=== PATIENT | female | born 1950 | race Caucasian/White ===

== ENCOUNTER 2023-08-21 | Inpatient (IN) | payer OTHER, MEDICAID ==
[~2023-08-21] VITALS: Ht 162.6 cm; Wt 79.3 kg
[2023-08-21] MEDS ORDERED: iohexol 350MG/ML 100ml bottle IV ONE (03:20)
[2023-08-21] MEDS ORDERED: iohexol 350 MG/ML 50ML vial IV ONE (03:39)
[2023-08-21] MEDS ORDERED: magnesium Cl slow-release 64mg tablet PO PRN (04:20)
[2023-08-21] MEDS ORDERED: potassium Cl 40MEQ/1/2NS 520ml 520 ML IV PRN (04:20)
[2023-08-21] MEDS ORDERED: magnesium 4gm in 100ml NS 100 ML IV PRN (04:20)
[2023-08-21] MEDS ORDERED: potassium Cl 20 mEq SR tablet PO PRN (04:20)
[2023-08-21] MEDS ORDERED: magnesium 2GM in 50ml NS 50 ML IV PRN (04:20)
[2023-08-21] MEDS ORDERED: mag hydrox/Alum hydrox/simeth 30ml oral suspension PO PRN (04:20)
[2023-08-21] MEDS ORDERED: acetaminophen 325mg tablet PO PRN (04:20)
[2023-08-21] MEDS: vancomycin/NS 1 GM ADD-VANTAGE 250 ML IV ONE (04:35)
[2023-08-21] MEDS: nicotine 14mg patch - 24hr TD ONE (04:45)
[2023-08-21] MEDS: normal saline 1000ml 1,000 ML IV SCH (05:05)
[2023-08-21] MEDS ORDERED: heparin 10,000 units/1 ML INJ IV SCH (05:20)
[2023-08-21] MEDS: ondansetron/PF 4mg/2ml inj IV PRN (05:44)
[2023-08-21] MEDS: nicotine 21mg patch - 24 hr TD ONE (05:45)
[2023-08-21] MEDS ORDERED: heparin 10,000 units/1 ML INJ IV PRN (06:35)
[2023-08-21] MEDS: morphine 2 MG/ML inj. syringe IV PRN (07:01)
[2023-08-21] MEDS: morphine 2 MG/ML inj. syringe IV ONE (07:35)
[2023-08-21] MEDS: piperacillin/tazo 3.375gm/50ml 50 ML IV SCH (08:00)
[2023-08-21] MEDS: K and/or MAG REPLACEMENT MC SCH (08:00)
[2023-08-21] MEDS ORDERED: enoxaparin 30mg/0.3ml syringe SQ SCH (08:00)
[2023-08-21] MEDS: docusate sod 100mg capsule PO SCH (08:00)
[2023-08-21] MEDS: heparin 10,000 units/1 ML INJ IV SCH (08:07)
[2023-08-21] MEDS: heparin 25,000 UNIT/250ml bag 250 ML IV PRN (08:09)
[2023-08-21 10:48] LABS: BASOPHILS # (AUTO) 0.1 X10'3 (0-0.2); BASOPHILS % (AUTO) 0.8 % (0-1); EOSINOPHILS # (AUTO) 0.2 X10'3 (0-0.9); EOSINOPHILS % (AUTO) 1.6 % (0-6); HEMOGLOBIN 11.8 g/dl (12.0-16.0); LYMPHOCYTES % (AUTO) 18.4 % (21-51); MEAN CORPUSCULAR HEMOGLOBIN 30.7 PG (27.0-31.0); MEAN CORPUSCULAR HGB CONC 33.7 g/dL (33.0-36.5); MEAN PLATELET VOLUME 8.7 FL (7.4-10.4); MONOCYTES # (AUTO) 0.5 X10'3 (0-0.9); MONOCYTES % (AUTO) 4.8 % (2-12); NEUTROPHILS # (AUTO) 8.2 X10'3 (1.8-7.7); NEUTROPHILS % (AUTO) 74.4 % (42-75); PLATELET COUNT 302 X10'3 (140-440); RED BLOOD COUNT 3.84 X10'6 (4.20-5.60); RED CELL DISTRIBUTION WIDTH 12.8 % (11.5-14.5)
[2023-08-21 11:07] LABS: ALANINE AMINOTRANSFERASE 29 U/L (12-78); ALBUMIN 2.8 G/DL (3.4-5.0); ALBUMIN/GLOBULIN RATIO 0.7 (1.1-1.5); ALKALINE PHOSPHATASE 86 IU/L (46-116); ANION GAP 6 (8-16); ASPARTATE AMINO TRANSFERASE 16 U/L (10-37); BILIRUBIN,TOTAL 0.5 MG/DL (0.1-1.0); BLOOD UREA NITROGEN 10 MG/DL (7-18); BUN/CREATININE RATIO 15.4 (10.0-20.0); CALCIUM 8.3 MG/DL (8.5-10.1); CHLORIDE 102 MMOL/L (99-107); CHOL/HDL RATIO 2.4 (0.00-4.99); CHOLESTEROL 149 MG/DL (0-200); CREATININE 0.65 MG/DL (0.40-0.90); GLUCOSE 143 MG/DL (70-104); HDL CHOLESTEROL 61 MG/DL (35-60); LACTATE DEHYDROGENASE 217 U/L (81-234); LDL CHOLESTEROL 71 MG/DL (50-100); POTASSIUM 3.1 MMOL/L (3.5-5.1); SODIUM 137 MMOL/L (135-145); THYROID STIMULATING HORMONE 1.52 ulU/ml (0.34-4.50); TOTAL CARBON DIOXIDE 28.7 MMOL/L (24-32); TOTAL PROTEIN 7.1 G/DL (6.4-8.2); TRIGLYCERIDES 31 MG/DL (20-135); eCRCL 68 ML/MIN; eGFR 90 ML/MIN
[2023-08-21 11:15] LABS: HEMOGLOBIN A1C 5.5 % (4.5-6.2)
[2023-08-21 14:41] LABS: BILIRUBIN,URINE NEGATIVE (Neg); CLARITY,URINE CLEAR (Clear); COLOR,URINE YELLOW (Yellow); GLUCOSE, URINE NEGATIVE (Neg); KETONES,URINE NEGATIVE (Neg); LEUKOCYTE ESTERASE ,URINE NEGATIVE (Neg); NITRITES, URINE NEGATIVE (Neg); OCCULT BLOOD,URINE NEGATIVE (Neg); PH,URINE 6.5 (4.8-8.0); PROTEIN,URINE NEGATIVE (Neg)
[2023-08-21 14:47] LABS: URINE AMPHETAMINE SCREEN POSITIVE (Neg); URINE BARBITUATE SCREEN NEGATIVE (Neg); URINE BENZODIAZEPINES SCREEN NEGATIVE (Neg); URINE CANNABINOID SCREEN NEGATIVE (Neg); URINE COCAINE SCREEN NEGATIVE (Neg); URINE METHADONE SCREEN NEGATIVE (Neg); URINE OPIATE SCREEN POSITIVE (Neg); URINE PHENCYCLIDINE SCREEN NEGATIVE (Neg)
[2023-08-21 14:52] LABS: UA COLLECTION TYPE OTHER
[2023-08-21 14:56] LABS: APTT 69 SECONDS (22-32); INR 1.1 INR; PROTHROMBIN TIME 11.4 SECONDS (9.0-12.0)
[2023-08-21] MEDS: vancomycin/NS 1 GM ADD-VANTAGE 250 ML IV SCH (16:53)
[2023-08-21] MEDS: potassium Cl 20 mEq SR tablet PO PRN (20:27)
[2023-08-21 22:00] VITALS: BP 92/51; PULSE 80; RESP 16; RESP 18; TEMP 97.6; O2SAT 95; O2SAT 97
[2023-08-21] MEDS ORDERED: NO HOME MEDS (22:04)
[2023-08-22 06:00] VITALS: BP 148/49; PULSE 80; RESP 16; TEMP 97.9; O2SAT 97
[2023-08-22 06:44] LABS: BASOPHILS # (AUTO) 0.1 X10'3 (0-0.2); BASOPHILS % (AUTO) 0.7 % (0-1); EOSINOPHILS # (AUTO) 0.2 X10'3 (0-0.9); EOSINOPHILS % (AUTO) 2.2 % (0-6); HEMATOCRIT 34.8 % (35.0-45.0); HEMOGLOBIN 11.8 g/dl (12.0-16.0); LYMPHOCYTES # (AUTO) 1.7 X10'3 (1.1-4.8); LYMPHOCYTES % (AUTO) 16.2 % (21-51); MEAN CORPUSCULAR HEMOGLOBIN 31.2 PG (27.0-31.0); MEAN CORPUSCULAR HGB CONC 34.1 g/dL (33.0-36.5); MEAN CORPUSCULAR VOLUME 91.5 FL (78-98); MEAN PLATELET VOLUME 9.1 FL (7.4-10.4); MONOCYTES # (AUTO) 0.8 X10'3 (0-0.9); MONOCYTES % (AUTO) 7.6 % (2-12); NEUTROPHILS # (AUTO) 7.5 X10'3 (1.8-7.7); NEUTROPHILS % (AUTO) 73.3 % (42-75); PLATELET COUNT 242 X10'3 (140-440); RED CELL DISTRIBUTION WIDTH 12.6 % (11.5-14.5); WHITE BLOOD COUNT 10.2 X10'3 (4.5-11.0)
[2023-08-22 07:06] LABS: ALANINE AMINOTRANSFERASE 25 U/L (12-78); ALBUMIN 2.6 G/DL (3.4-5.0); ALBUMIN/GLOBULIN RATIO 0.7 (1.1-1.5); ALKALINE PHOSPHATASE 75 IU/L (46-116); ANION GAP 8 (8-16); ASPARTATE AMINO TRANSFERASE 21 U/L (10-37); BILIRUBIN,TOTAL 0.4 MG/DL (0.1-1.0); BLOOD UREA NITROGEN 11 MG/DL (7-18); BUN/CREATININE RATIO 15.7 (10.0-20.0); CALCIUM 8.3 MG/DL (8.5-10.1); CHLORIDE 105 MMOL/L (99-107); GLUCOSE 95 MG/DL (70-104); MAGNESIUM 1.9 MG/DL (1.5-2.4); SODIUM 137 MMOL/L (135-145); TOTAL CARBON DIOXIDE 23.8 MMOL/L (24-32); TOTAL PROTEIN 6.6 G/DL (6.4-8.2); eCRCL 63 ML/MIN; eGFR 82 ML/MIN
[2023-08-22 07:09] LABS: POTASSIUM 3.7 MMOL/L (3.5-5.1)
[2023-08-22 10:00] VITALS: BP 151/58; PULSE 78; RESP 18; TEMP 98; O2SAT 98
[2023-08-22 10:14] VITALS: RESP 20; O2SAT 95
[2023-08-22] MEDS: morphine 2 MG/ML inj. syringe IV ONE (15:16)
[2023-08-22] MEDS: LORazepam 2 mg/ml vial IV ONE (15:16)
[2023-08-22] MEDS: VANCOMYCIN LEVEL IV ONE (17:06)
[2023-08-22] MEDS ORDERED: haloperidol lactate 5mg/ml inj IM PRN (17:45)
[2023-08-22 19:00] VITALS: RESP 20
[2023-08-22 21:00] VITALS: BP 131/45; PULSE 79; RESP 18; TEMP 98.1
[2023-08-22] MEDS: nicotine 21mg patch - 24 hr TD SCH (21:25)
[2023-08-23] VITALS (13 sets, daily range): BP systolic 111–160; BP diastolic 43–71; PULSE 66–100; RESP 16–20; TEMP 96.9–99.7; O2SAT 90–100
[2023-08-23 08:10] LABS: BASOPHILS # (AUTO) 0.1 X10'3 (0-0.2); BASOPHILS % (AUTO) 1.2 % (0-1); EOSINOPHILS # (AUTO) 0.2 X10'3 (0-0.9); EOSINOPHILS % (AUTO) 1.9 % (0-6); HEMATOCRIT 35.8 % (35.0-45.0); HEMOGLOBIN 12.2 g/dl (12.0-16.0); LYMPHOCYTES # (AUTO) 1.5 X10'3 (1.1-4.8); LYMPHOCYTES % (AUTO) 18.4 % (21-51); MEAN CORPUSCULAR HEMOGLOBIN 30.8 PG (27.0-31.0); MEAN CORPUSCULAR HGB CONC 34.1 g/dL (33.0-36.5); MEAN CORPUSCULAR VOLUME 90.3 FL (78-98); MEAN PLATELET VOLUME 8.6 FL (7.4-10.4); MONOCYTES # (AUTO) 0.7 X10'3 (0-0.9); MONOCYTES % (AUTO) 8.3 % (2-12); NEUTROPHILS # (AUTO) 5.8 X10'3 (1.8-7.7); NEUTROPHILS % (AUTO) 70.2 % (42-75); PLATELET COUNT 297 X10'3 (140-440); RED BLOOD COUNT 3.97 X10'6 (4.20-5.60); RED CELL DISTRIBUTION WIDTH 12.6 % (11.5-14.5); WHITE BLOOD COUNT 8.2 X10'3 (4.5-11.0)
[2023-08-23 08:35] LABS: ALANINE AMINOTRANSFERASE 30 U/L (12-78); ALBUMIN 2.8 G/DL (3.4-5.0); ALBUMIN/GLOBULIN RATIO 0.6 (1.1-1.5); ALKALINE PHOSPHATASE 85 IU/L (46-116); ANION GAP 8 (8-16); ASPARTATE AMINO TRANSFERASE 19 U/L (10-37); BILIRUBIN,TOTAL 0.4 MG/DL (0.1-1.0); BLOOD UREA NITROGEN 9 MG/DL (7-18); BUN/CREATININE RATIO 13.4 (10.0-20.0); CALCIUM 8.8 MG/DL (8.5-10.1); CHLORIDE 102 MMOL/L (99-107); CREATININE 0.67 MG/DL (0.40-0.90); GLUCOSE 89 MG/DL (70-104); MAGNESIUM 2.1 MG/DL (1.5-2.4); POTASSIUM 3.6 MMOL/L (3.5-5.1); SODIUM 139 MMOL/L (135-145); TOTAL CARBON DIOXIDE 28.7 MMOL/L (24-32); TOTAL PROTEIN 7.4 G/DL (6.4-8.2); eCRCL 66 ML/MIN; eGFR 87 ML/MIN
[2023-08-23] MEDS: dexmedetomidin/NS 400mcg/100ml 100 ML IV ONE (09:40)
[2023-08-23] MEDS ORDERED: heparin 1,000 UNITS/NS 500ml 500 ML ONE (09:45)
[2023-08-23] MEDS ORDERED: iohexol 300mg/ml 100ml inj. ONE (09:45)
[2023-08-23] MEDS ORDERED: midazolam 1 mg/ML 2ml injection ONE (10:26)
[2023-08-23] MEDS ORDERED: fentaNYL/PF 50MCG/1 ML 2ML syringe ONE (10:26)
[2023-08-23] MEDS: VANCOmycin 1250MG/NS 250ml Bag 250 ML IV SCH (17:45)
[2023-08-23 18:18] LABS: APTT 38 SECONDS (22-32)
[2023-08-23] MEDS: clopidogrel 300mg tablet PO ONE (19:40)
[2023-08-23] MEDS: temazepam 15mg capsule PO PRN (21:07)
[2023-08-23] MEDS: HYDROcodone/acetaminophen 10/325mg tab PO PRN (21:08)
[2023-08-24] MEDS: haloperidol 5mg tablet PO ONE (01:43)
[2023-08-24 06:00] VITALS: BP 120/54; PULSE 71; RESP 12; TEMP 97.8; O2SAT 98
[2023-08-24] MEDS: clopidogrel 75mg tablet PO SCH (08:09)
[2023-08-24 10:00] VITALS: BP 143/60; PULSE 78; RESP 15; TEMP 98.5; O2SAT 98
[2023-08-24 10:30] LABS: BASOPHILS # (AUTO) 0.1 X10'3 (0-0.2); BASOPHILS % (AUTO) 0.8 % (0-1); EOSINOPHILS # (AUTO) 0.1 X10'3 (0-0.9); HEMATOCRIT 33.2 % (35.0-45.0); HEMOGLOBIN 11.1 g/dl (12.0-16.0); MEAN CORPUSCULAR HEMOGLOBIN 30.2 PG (27.0-31.0); MEAN CORPUSCULAR HGB CONC 33.5 g/dL (33.0-36.5); MEAN CORPUSCULAR VOLUME 90.1 FL (78-98); MEAN PLATELET VOLUME 8.3 FL (7.4-10.4); MONOCYTES # (AUTO) 0.6 X10'3 (0-0.9); MONOCYTES % (AUTO) 8.2 % (2-12); NEUTROPHILS # (AUTO) 5.5 X10'3 (1.8-7.7); PLATELET COUNT 264 X10'3 (140-440); RED BLOOD COUNT 3.69 X10'6 (4.20-5.60); RED CELL DISTRIBUTION WIDTH 12.8 % (11.5-14.5); WHITE BLOOD COUNT 7.3 X10'3 (4.5-11.0)
[2023-08-24 10:49] LABS: ANION GAP 8 (8-16); BILIRUBIN,TOTAL 0.3 MG/DL (0.1-1.0); CHLORIDE 107 MMOL/L (99-107); CREATININE 0.74 MG/DL (0.40-0.90); GLUCOSE 145 MG/DL (70-104); MAGNESIUM 1.9 MG/DL (1.5-2.4); SODIUM 141 MMOL/L (135-145); TOTAL CARBON DIOXIDE 25.8 MMOL/L (24-32); eCRCL 59 ML/MIN; eGFR 77 ML/MIN
[2023-08-24 10:50] LABS: ALANINE AMINOTRANSFERASE 42 U/L (12-78); ALBUMIN 2.4 G/DL (3.4-5.0); ALBUMIN/GLOBULIN RATIO 0.6 (1.1-1.5); ALKALINE PHOSPHATASE 71 IU/L (46-116); ASPARTATE AMINO TRANSFERASE 33 U/L (10-37); BLOOD UREA NITROGEN 8 MG/DL (7-18); BUN/CREATININE RATIO 10.8 (10.0-20.0); POTASSIUM 3.6 MMOL/L (3.5-5.1); TOTAL PROTEIN 6.3 G/DL (6.4-8.2)
[2023-08-24] MEDS: magnesium hydroxide 30ml (MOM) UD suspension PO PRN (16:29)
[2023-08-24] MEDS: haloperidol 1mg tablet PO PRN (20:11)
[2023-08-25] MEDS: VANCOMYCIN LEVEL IV ONE ×2 (02:32→14:56)
[2023-08-25 06:36] LABS: BASOPHILS # (AUTO) 0.1 X10'3 (0-0.2); BASOPHILS % (AUTO) 0.7 % (0-1); EOSINOPHILS # (AUTO) 0.2 X10'3 (0-0.9); EOSINOPHILS % (AUTO) 2.5 % (0-6); HEMATOCRIT 32.6 % (35.0-45.0); HEMOGLOBIN 11.2 g/dl (12.0-16.0); LYMPHOCYTES # (AUTO) 1.3 X10'3 (1.1-4.8); LYMPHOCYTES % (AUTO) 15.5 % (21-51); MEAN CORPUSCULAR HEMOGLOBIN 31.1 PG (27.0-31.0); MEAN CORPUSCULAR HGB CONC 34.3 g/dL (33.0-36.5); MEAN CORPUSCULAR VOLUME 90.6 FL (78-98); MEAN PLATELET VOLUME 8.5 FL (7.4-10.4); MONOCYTES # (AUTO) 0.7 X10'3 (0-0.9); MONOCYTES % (AUTO) 8.4 % (2-12); NEUTROPHILS # (AUTO) 6.2 X10'3 (1.8-7.7); NEUTROPHILS % (AUTO) 72.9 % (42-75); PLATELET COUNT 281 X10'3 (140-440); RED CELL DISTRIBUTION WIDTH 12.8 % (11.5-14.5); WHITE BLOOD COUNT 8.4 X10'3 (4.5-11.0)
[2023-08-25 06:49] LABS: ALANINE AMINOTRANSFERASE 67 U/L (12-78); ALBUMIN 2.3 G/DL (3.4-5.0); ALBUMIN/GLOBULIN RATIO 0.6 (1.1-1.5); ALKALINE PHOSPHATASE 76 IU/L (46-116); ANION GAP 6 (8-16); ASPARTATE AMINO TRANSFERASE 45 U/L (10-37); BILIRUBIN,TOTAL 0.3 MG/DL (0.1-1.0); BLOOD UREA NITROGEN 7 MG/DL (7-18); BUN/CREATININE RATIO 10.8 (10.0-20.0); CALCIUM 7.8 MG/DL (8.5-10.1); CHLORIDE 109 MMOL/L (99-107); CREATININE 0.65 MG/DL (0.40-0.90); GLUCOSE 99 MG/DL (70-104); POTASSIUM 3.6 MMOL/L (3.5-5.1); SODIUM 144 MMOL/L (135-145); TOTAL CARBON DIOXIDE 28.7 MMOL/L (24-32); TOTAL PROTEIN 6.2 G/DL (6.4-8.2); eCRCL 68 ML/MIN; eGFR 90 ML/MIN
[2023-08-25 06:51] LABS: VANCOMYCIN,TROUGH 34.4 ug/mL (10.0-20.0)
[2023-08-25 07:00] VITALS: BP 165/59; PULSE 83; RESP 16; TEMP 98; O2SAT 99
[2023-08-25] MEDS: aspirin 81mg, enteric-coated 1 TAB TABLET.DR PO SCH (09:05)
[2023-08-25 10:00] VITALS: BP 164/67; PULSE 81; RESP 17; TEMP 97.9; O2SAT 99
[2023-08-25 11:13] VITALS: RESP 16; O2SAT 96
[2023-08-25 18:00] VITALS: BP 158/65; PULSE 76; RESP 20; TEMP 97.6; O2SAT 94
[2023-08-25] MEDS: enoxaparin 40mg/0.4ml syringe SQ SCH (19:27)
[2023-08-25 22:00] VITALS: BP 171/78; PULSE 77; RESP 16; TEMP 98.1; O2SAT 99
[2023-08-26 04:40] LABS: BASOPHILS # (AUTO) 0.1 X10'3 (0-0.2); BASOPHILS % (AUTO) 0.7 % (0-1); EOSINOPHILS # (AUTO) 0.3 X10'3 (0-0.9); EOSINOPHILS % (AUTO) 3.6 % (0-6); HEMATOCRIT 35.7 % (35.0-45.0); LYMPHOCYTES # (AUTO) 1.4 X10'3 (1.1-4.8); LYMPHOCYTES % (AUTO) 17.8 % (21-51); MEAN CORPUSCULAR HEMOGLOBIN 30.5 PG (27.0-31.0); MEAN CORPUSCULAR HGB CONC 33.6 g/dL (33.0-36.5); MEAN CORPUSCULAR VOLUME 90.7 FL (78-98); MEAN PLATELET VOLUME 8.5 FL (7.4-10.4); MONOCYTES # (AUTO) 0.7 X10'3 (0-0.9); MONOCYTES % (AUTO) 9.3 % (2-12); NEUTROPHILS # (AUTO) 5.5 X10'3 (1.8-7.7); NEUTROPHILS % (AUTO) 68.6 % (42-75); PLATELET COUNT 281 X10'3 (140-440); RED BLOOD COUNT 3.94 X10'6 (4.20-5.60); RED CELL DISTRIBUTION WIDTH 12.9 % (11.5-14.5)
[2023-08-26 04:42] LABS: ALANINE AMINOTRANSFERASE 78 U/L (12-78); ALBUMIN 2.6 G/DL (3.4-5.0); ALBUMIN/GLOBULIN RATIO 0.6 (1.1-1.5); ALKALINE PHOSPHATASE 87 IU/L (46-116); ANION GAP 6 (8-16); ASPARTATE AMINO TRANSFERASE 38 U/L (10-37); BILIRUBIN,TOTAL 0.3 MG/DL (0.1-1.0); BLOOD UREA NITROGEN 10 MG/DL (7-18); BUN/CREATININE RATIO 14.3 (10.0-20.0); CALCIUM 8.9 MG/DL (8.5-10.1); CHLORIDE 103 MMOL/L (99-107); GLUCOSE 116 MG/DL (70-104); POTASSIUM 3.4 MMOL/L (3.5-5.1); SODIUM 138 MMOL/L (135-145); TOTAL CARBON DIOXIDE 29.2 MMOL/L (24-32); eCRCL 63 ML/MIN; eGFR 82 ML/MIN
[2023-08-26 07:00] VITALS: BP 172/67; PULSE 79; RESP 20; TEMP 98; O2SAT 98
[2023-08-26 09:18] VITALS: RESP 18; O2SAT 97
[2023-08-26 10:00] VITALS: BP 159/55; PULSE 79; RESP 16; TEMP 98; O2SAT 100
[2023-08-26] MEDS ORDERED: magnesium 4gm in 100ml NS 100 ML IV PRN (12:40)
[2023-08-26] MEDS ORDERED: potassium Cl 40MEQ/1/2NS 520ml 520 ML IV PRN (12:40)
[2023-08-26] MEDS ORDERED: potassium Cl 20 mEq SR tablet PO PRN (12:40)
[2023-08-26] MEDS ORDERED: magnesium Cl slow-release 64mg tablet PO PRN (12:40)
[2023-08-26] MEDS ORDERED: magnesium 2GM in 50ml NS 50 ML IV PRN (12:40)
[2023-08-26] MEDS: potassium Cl 20 mEq SR tablet PO PRN (13:27)
[2023-08-26] MEDS: ALPRAZolam 0.25mg tablet PO PRN (15:12)
[2023-08-26 18:00] VITALS: BP 165/55; PULSE 80; RESP 15; TEMP 98.3; O2SAT 98
[2023-08-26] MEDS: K and/or MAG REPLACEMENT MC SCH (19:10)
[2023-08-26 22:00] VITALS: BP 161/98; PULSE 77; RESP 16; TEMP 97.7; O2SAT 99
[2023-08-27 06:00] VITALS: BP 145/62; PULSE 80; RESP 15; TEMP 97.3; O2SAT 98
[2023-08-27] MEDS: losartan 50mg tablet PO SCH (09:55)
[2023-08-27 12:00] VITALS: BP 120/93; PULSE 77; RESP 18; TEMP 96.9; O2SAT 95
[2023-08-27 18:00] VITALS: BP 100/52; PULSE 75; RESP 16; TEMP 98.3; O2SAT 97
[2023-08-27 20:00] VITALS: RESP 17; O2SAT 4
[2023-08-27 22:00] VITALS: BP 97/20; PULSE 73; RESP 17; TEMP 97.5; O2SAT 99
[2023-08-28 06:00] VITALS: BP 133/67; PULSE 77; RESP 17; TEMP 97.7; O2SAT 97
[2023-08-28 11:00] VITALS: RESP 22; O2SAT 98
[2023-08-28 12:00] VITALS: BP 137/65; PULSE 84; RESP 16; TEMP 97; O2SAT 97
[2023-08-28 19:00] VITALS: BP 147/62; PULSE 79; RESP 14; TEMP 98.2; O2SAT 96
[2023-08-28 22:00] VITALS: BP 127/59; PULSE 84; RESP 16; TEMP 97.4; O2SAT 100
[2023-08-29] VITALS (20 sets, daily range): BP systolic 97–143; BP diastolic 37–84; PULSE 71–101; RESP 14–18; TEMP 97.4–98.8; O2SAT 95–100
[2023-08-29] MEDS ORDERED: BUPIVAcaine 2.5mg/ml inj 50ml vial (contains preservative) ONE (14:09)
[2023-08-29] MEDS ORDERED: bacitracin 15gm ointment TP ONE (14:09)
[2023-08-29] MEDS ORDERED: vancomycin 1,000mg inj ONE (14:09)
[2023-08-29] MEDS: HYDROcodone/acetaminophen 5mg/325mg tablet PO PRN (14:12)
[2023-08-29] MEDS ORDERED: labetalol 20mg/4ml (5mg/ml) syringe IV PRN (15:05)
[2023-08-29] MEDS ORDERED: morphine 2 MG/ML inj. syringe IV PRN (15:05)
[2023-08-29] MEDS ORDERED: meperidine/PF 25mg/ml syringe IV PRN ×3 (15:05)
[2023-08-29] MEDS: ringers solution, lacted 1,000 ML IV SCH (15:05)
[2023-08-29] MEDS: ketorolac tromethamine 15mg/ml inj. IV ONE (15:05)
[2023-08-29] MEDS ORDERED: morphine 4 MG/ML inj SYRINge IV PRN (15:05)
[2023-08-29] MEDS ORDERED: proCHLORperazine 10 MG/2 ml inj IV PRN (15:05)
[2023-08-29] MEDS ORDERED: hydrALAZINE 20mg/ml inj. IV PRN (15:05)
[2023-08-29] MEDS ORDERED: ondansetron/PF 4mg/2ml inj IV PRN (15:05)
[2023-08-29] MEDS: acetaminophen 1,000mg/100ml IV 100 ML IV ONE (15:05)
[2023-08-29] MEDS ORDERED: ondansetron/PF 4mg/2ml inj ONE (15:14)
[2023-08-29] MEDS ORDERED: sevoflurane 250ml liquid IH ONE (15:14)
[2023-08-29] MEDS ORDERED: fentaNYL/PF 50MCG/1 ML 2ML syringe ONE (15:21)
[2023-08-29] MEDS ORDERED: midazolam 1 mg/ML 2ml injection ONE (15:33)
[2023-08-29] MEDS ORDERED: ceFAZolin 1000mg inj ONE ×2 (15:36)
[2023-08-29] MEDS ORDERED: ROPIVAcaine 0.5% (5mg/ml) 30ml vial ONE (15:36)
[2023-08-29] MEDS ORDERED: dexamethasone sod phosphate 4mg/ml inj. ONE (15:36)
[2023-08-29] MEDS ORDERED: 0.9 % SODIUM CHLORIDE 10 ML VIAL ONE (15:36)
[2023-08-29] MEDS ORDERED: propofol inj 20 ML IV ONE (15:36)
[2023-08-29] MEDS ORDERED: LIDOcaine 2% (20mg/ml) 5ml vial ONE (15:37)
[2023-08-29] MEDS ORDERED: ePHEDrine 50MG/ML INJ. ONE (15:37)
[2023-08-30] MEDS ORDERED: potassium Cl 20 mEq SR tablet PO PRN (00:20)
[2023-08-30] MEDS ORDERED: magnesium 2GM in 50ml NS 50 ML IV PRN (00:20)
[2023-08-30] MEDS ORDERED: magnesium 4gm in 100ml NS 100 ML IV PRN (00:20)
[2023-08-30] MEDS: potassium Cl 20 mEq SR tablet PO PRN (00:43)
[2023-08-30 02:00] VITALS: BP 133/98; PULSE 79; RESP 16; TEMP 97.8; O2SAT 97
[2023-08-30 06:00] VITALS: BP 122/68; PULSE 71; RESP 16; TEMP 97.7; O2SAT 98
[2023-08-30] MEDS: K and/or MAG REPLACEMENT MC SCH (07:06)
[2023-08-30] MEDS: oxyCODONE SR 10mg (sust. release) tab PO SCH (12:23)
[2023-08-30] MEDS: HYDROmorphone inj. 0.5 MG/0.5 ML DISP.SYRIN IV PRN (14:39)
[2023-08-30 15:13] VITALS: BP 136/59; PULSE 84; RESP 20; TEMP 97.8; O2SAT 99
[2023-08-30 18:00] VITALS: BP 121/45; PULSE 86; RESP 18; TEMP 97.9; O2SAT 98
[2023-08-30 20:00] VITALS: RESP 16; O2SAT 97
[2023-08-30 22:00] VITALS: BP 115/64; PULSE 80; RESP 17; TEMP 98.2; O2SAT 98
[2023-08-31 06:00] VITALS: BP 125/64; PULSE 80; RESP 17; TEMP 98.6; O2SAT 98
[2023-08-31 07:42] LABS: MAGNESIUM 2.9 MG/DL (1.5-2.4); POTASSIUM 5.3 MMOL/L (3.5-5.1)
[2023-08-31 10:00] VITALS: BP 133/55; PULSE 80; RESP 18; TEMP 97.3; O2SAT 99
[2023-08-31] MEDS ORDERED: CLOP75TA34 PO (15:22)
[2023-08-31] MEDS ORDERED: OXYC10TA57 PO ×2 (15:22→19:06)
[2023-08-31] MEDS ORDERED: LOSA50TA64 PO (15:24)
== END 2023-08-31 16:10 | disposition home or self-care (01) | DRG 252 ==
LOC: ER → ED HOLD 04:20 → ORTHO 4S 22:13 → PACU 08-29 16:17 → ORTHO 4S 08-29 18:00
PROVIDERS: ADMIT Family Medicine; ATTEND Family Medicine
PROC: 047D3DZ Dilation of Left Common Iliac Artery with Intraluminal Device, Percutaneous Approach (ICD-10-PCS; principal; 2023-08-21)
PROC: 04HL33Z Insertion of Infusion Device into Left Femoral Artery, Percutaneous Approach (ICD-10-PCS; 2023-08-21)
PROC: B41G1ZZ Fluoroscopy of Left Lower Extremity Arteries using Low Osmolar Contrast (ICD-10-PCS; 2023-08-21)
PROC: 0Y6Q0Z0 Detachment at Left 1st Toe, Complete, Open Approach (ICD-10-PCS; 2023-08-29)
DX: I70.262 Atherosclerosis of native arteries of extremities with gangrene, left leg (principal); G93.41 Metabolic encephalopathy; I74.5 Embolism and thrombosis of iliac artery; E87.6 Hypokalemia; F19.90 Other psychoactive substance use, unspecified, uncomplicated; Z79.899 Other long term (current) drug therapy
CPT/HCPCS: 36410; 36415; 37221; 70450; 73706; 76937; 80053; 80061; 80202; 80305; 81003; 82948; 83036; 83615; 83735; 84132; 84443; 85025; 85610; 85730; 87070; 87075; 87077; 87081; 87186; 88305; 93005; 93926; 93971; 97161; 97530; 99152; 99153; 99285; A4615; A4618; A4620; A6213; A6402; A6449; A7000; C1725; C1751; C1760; C1769; C1876; C1894; G0378; J0690; J1100; J1170; J1644; J1650; J2060; J2250; J2270; J2405; J2543; J2704; J2795; J3010; J3370; J3490; J7030; J7120; Q9967